=== PATIENT | male | born 1975 | race Caucasian/White ===

== ENCOUNTER 2023-05-16 21:40 | Inpatient (IN) | payer SELFPAY ==
[~2023-05-16] VITALS: Ht 182.9 cm; Wt 124.3 kg
[2023-05-16 22:41] LABS: BASOPHILS ABSOLUTE AUTO 0.03 K/mm3 (0.00-0.23); BASOPHILS PERCENT AUTO 0 % (0-2); EOSINOPHILS ABSOLUTE AUTO 0.02 K/mm3 (0.00-0.68); EOSINOPHILS PERCENT AUTO 0 % (0-6); Hematocrit 42.4 % (37.0-53.0); Hemoglobin 15.4 g/dL (13.5-17.5); IMMATURE GRAN ABSOLUTE AUTO 0.02 K/mm3 (0.00-0.10); IMMATURE GRAN PERCENT AUTO 0 % (0-1); LYMPHOCYTES ABSOLUTE AUTO 1.18 K/mm3 (0.84-5.20); LYMPHOCYTES PERCENT AUTO 12 % (21-46); MONOCYTES ABSOLUTE AUTO 0.54 K/mm3 (0.16-1.47); MONOCYTES PERCENT AUTO 6 % (4-13); Mean Corpuscular HGB 29.2 pg (26.0-34.0); Mean Corpuscular HGB Conc 36.3 g/dL (31.5-36.5); Mean Corpuscular Volume 80 fL (80-100); Mean Platelet Volume 11.1 fL (9.1-12.4); NEUTROPHILS ABSOLUTE AUTO 8.07 K/mm3 (1.96-9.15); NEUTROPHILS PERCENT AUTO 82 % (41-73); Platelet Count 239 K/mm3 (150-400); RDW Coefficient Variation 11.9 % (11.7-14.2); RDW Standard Deviation 34.4 fL (35.1-46.3); Red Blood Cell Count 5.28 M/mm3 (4.30-5.90); White Blood Cell Count 9.86 K/mm3 (4.00-11.30)
[2023-05-16 23:41] LABS: Albumin, Blood 3.6 g/dL (3.4-5.0); Albumin/Globulin Ratio 0.9 (0.8-1.8); Bilirubin, Total 3.6 mg/dL (0.1-1.0); Bun/Creatinine Ratio 15.6 (12.0-20.0); Calcium, Blood 9.1 mg/dL (8.5-10.1); Creatinine, Blood 0.77 mg/dL (0.60-1.20); Globulin, Blood 4.2 g/dL (2.2-4.0); Potassium, Blood 3.9 mmol/L (3.5-5.5); Total Protein, Blood 7.8 g/dL (6.4-8.2)
[2023-05-16] MEDS ORDERED: NS 1,000 ML IV SCH (23:45)
[2023-05-16] MEDS ORDERED: Ondansetron HCl 2 MG / ML 2ML Vial IV ONE (23:45)
[2023-05-16] MEDS ORDERED: HYDROmorphone HCl/Pf 1MG SYR IV ONE (23:45)
[2023-05-17] MEDS ORDERED: Piperacillin/Tazobactam Sod 4.5 GM in NS 100 ML IV ONE (00:15)
[2023-05-17] MEDS ORDERED: NS 1,000 ML IV SCH (00:20)
[2023-05-17] MEDS ORDERED: HYDROmorphone HCl/Pf 1MG SYR IV PRN (00:20)
[2023-05-17] MEDS ORDERED: Ondansetron HCl 2 MG / ML 2ML Vial IV PRN (00:20)
--- NOTE | 2023-05-17 01:05 | NUR ---
ARRIVAL TO UNIT PT ARRIVED TO UNIT VIA GURNEY. ABLE TO TRANSFER SELF TO BED W/O ASST. PT DENIES ANY PAIN. PT REMAINS NPO FOR POSSIBLE SURGERY TOMORROW. IV FLUIDS RUNNING. ABX RUNNING. CALL LIGHT GIVEN TO PT AND EDUCATED ON HOW TO USE. VSS. PT DENIES ANY OTHER NEEDS AT THIS TIME. CALL LIGHT WITHIN REACH
[2023-05-17 01:19] VITALS: BP 142/83
[2023-05-17 05:26] VITALS: BP 128/76
--- NOTE | 2023-05-17 06:01 | NUR ---
SHIFT SUMMARY PT SLEPT FOR THE REMAINDER OF THE SHIFT. DENIES ANY PAIN OR NEEDS AT THIS TIME. HAS BEEN NPO SINCE ARRIVAL TO UNIT. FLUIDS RUNNING. AWAITING SURGERY FOR TODAY. NO OTHER CONCERNS AT THIS TIME. CALL LIGHT WITHIN REACH
[2023-05-17 07:23] VITALS: BP 122/68
[2023-05-17] MEDS ORDERED: Lactated Ringer's 1,000 ML IV SCH (07:45)
[2023-05-17] MEDS ORDERED: HYDROcodone 5-APAP 325 TAB PO PRN (07:45)
[2023-05-17] MEDS ORDERED: FLU VACC QS2023-24(6MOS UP)/PF 60 MCG/0.5 ML SYRINGE IM ONE (07:45)
[2023-05-17] MEDS ORDERED: Piperacillin/Tazobactam Sod 3.375 GM in NS 50 ML IV SCH (07:45)
[2023-05-17 14:44] VITALS: BP 151/95
--- NOTE | 2023-05-17 18:44 | NUR ---
SHIFT SUMMARY PT A&OX4, VSS/RA, NPO, IVF/ABX PER EMAR, VOIDING WELL, AMB INDEPENDENTLY, PAIN MANAGED. PLAN FOR PT TO DC TO GO HOME TO [place] WHEN ARRIVES THIS PM, AND TO FOLLOW UP WITH HOSPITAL THERE FOR [facility]. WILL REPORT TO ONCOMING NOC RN.
[2023-05-17 19:48] VITALS: BP 145/77
--- NOTE | 2023-05-17 23:05 | NUR ---
DISCHARGE SUMMARY PATIENT LEFT THE HOSPITAL WITH HIS FAMILY. ALL DISCHARGE INSTRUCTIONS PREVIOUSLY GONE OVER WITH DAYSHIFT RN. PO PAIN MEDICATION GIVEN PRIOR TO DISCHARGE TO ASSIST WITH PAIN MANAGEMENT FOR APPROX. [address]. [facility] REMOVED THE PATIENT'S IV ACCESS WHILE THIS RN WENT TO THE ED TO SHOW THE PATIENT'S FAMILY WHERE HE WAS IN THE HOSPITAL. THE PATIENT WANTED TO AMBULATE OUT OF THE HOSPITAL. THIS RN ASKED THE PATIENT IF HE WAS FEELING DIZZY OR LIGHTHEADED AND THE PATIENT STATED HE WAS FINE. THIS RN AMBULATED WITH THE PATIENT TO HIS FAMILY'S VEHICLE, WHICH WAS WAITING FOR THE PATIENT AT THE ENTRANCE TO THE ED. ALL BELONGINGS SENT HOME WITH PATIENT AND PATIENT'S FAMILY.
== END 2023-05-17 23:00 | disposition home or self-care (01) | DRG 446 ==
LOC: ER 21:40 → MEDS 21:41 → SURS 21:41
PROVIDERS: Emergency Medicine; ADMIT Surgery
DX: K80.00 Calculus of gallbladder with acute cholecystitis without obstruction (principal); K76.0 Fatty (change of) liver, not elsewhere classified; Z28.21 Immunization not carried out because of patient refusal
CPT/HCPCS: 76705; 80053; 83690; 85025; 93005; 93010; 96365; 96374; 96375; 99285-25; A9270; G0378; J1170; J2405; J2543; J7030; J7120